=== PATIENT | male | born 1985 | race African-American/Black ===

== ENCOUNTER 2016-11-03 18:31 | Emergency (ER) | payer SELFPAY ==
[~2016-11-03] VITALS: Ht 170.2 cm; Wt 100.0 kg
[2016-11-03 18:33] VITALS: BP 128/83; PULSE 70; RESP 20; TEMP 98.1; O2SAT 98
[2016-11-03] MEDS ORDERED: AMOX500C PO (18:42)
--- NOTE | 2016-11-03 18:52 | PD ---
HPI Chief Complaint: Headache Time Seen by Provider: 18:42 Travel History International Travel<30 days: No Contact w/Intl Traveler<30days: No Traveled to known affect area: No History of Present Illness HPI 30-year-old male came to the emergency room with history of headache that's been on and off for past 2 weeks. He points to his left side of the temporal area and says it radiates up to the midline/vertex. When it comes it's like a severe spasm that causes disequilibrium as well. Currently the discomfort is 3 out of 10. Vital signs are stable. Patient says he gets headache but it has never been like this and he usually takes care of it himself at home. He otherwise claims to be healthy. Patient is a smoker and smokes one pack per day for past 15 years. No history of photophobia or neck stiffness. No history of fever, vomiting or nausea. No known family history of cerebral aneurysms. PFSH Past Medical History Narrative Medical List of his past medical, surgical, social and family history is reviewed from the nursing note. Past Surgical History Oral Surgery: Yes (DENTAL) Social History Alcohol Use: Yes (SOC) Tobacco Use: Yes (2PPD) Substance Use: Yes (marijuana) Allergies-Medications (Allergen,Severity, Reaction): Coded Allergies: Codeine (Verified Allergy, Unknown, 11/03/16) Comments List of his allergies reviewed from the nursing note. Reported Meds & Prescriptions Reported Meds & Active Scripts Active Qegdsaoyhf-Eixptmfxkykqm-Dlunwluu 50-300-40 Mg Cap 1 Cap PO Q4H PRN Do not exceed 6 capsules/day. Reported Amoxicillin 500 Mg Cap 500 Mg PO BID Narrative Medication List of his home medications reviewed from the nursing note. Review of Systems Except as stated in HPI: all other systems reviewed are Neg Physical Exam Narrative GENERAL: Awake, alert, anxious SKIN: Focused skin assessment warm/dry. HEAD: Atraumatic. Normocephalic. EYES: Pupils equal and round. No scleral icterus. No injection or drainage. ENT: No nasal bleeding or discharge. Mucous membranes pink and moist. NECK: Trachea midline. No JVD. Neck is supple, no signs of meningismus CARDIOVASCULAR: Regular rate and rhythm. No murmur appreciated. RESPIRATORY: No accessory muscle use. Clear to auscultation. Breath sounds equal bilaterally. GASTROINTESTINAL: Abdomen soft, non-tender, nondistended. Hepatic and splenic margins not palpable. MUSCULOSKELETAL: No obvious deformities. No clubbing. No cyanosis. No edema. NEUROLOGICAL: Awake and alert. No obvious cranial nerve deficits. Motor grossly within normal limits. Normal speech. PSYCHIATRIC: Appropriate mood and affect; insight and judgment normal. Data Data Last Documented VS Vital Signs Date Time Temp Pulse Resp B/P Pulse Ox O2 Delivery O2 Flow Rate FiO2 11/03/16 18:33 98.1 70 20 128/83 98 Room Air Orders Complete Blood Count With Diff (11/03/16 18:58) Basic Metabolic Panel (Bmp) (11/03/16 18:58) Ct Brain W/O Iv Contrast(Rout) (11/03/16 18:58) Ecg Monitoring (11/03/16 18:58) Iv Access Insert/Monitor (11/03/16 18:58) Oximetry (11/03/16 18:58) Sodium Chloride 0.9% Flush (Ns Flush) (11/03/16 19:00) Prochlorperazine Inj (Compazine Inj) (11/03/16 19:00) Sodium Chlor 0.9% 1000 Ml Inj (Ns 1000 M (11/03/16 18:58) Diphenhydramine Inj (Benadryl Inj) (11/03/16 20:30) Labs Laboratory Tests Test 11/03/16 19:10 White Blood Count 6.8 TH/MM3 Red Blood Count 4.67 MIL/MM3 Hemoglobin 14.0 GM/DL Hematocrit 41.1 % Mean Corpuscular Volume 88.0 FL Mean Corpuscular Hemoglobin 29.9 PG Mean Corpuscular Hemoglobin 34.0 % Concent Red Cell Distribution Width 13.2 % Platelet Count 364 TH/MM3 Mean Platelet Volume 6.7 FL Neutrophils (%) (Auto) 56.8 % Lymphocytes (%) (Auto) 31.7 % Monocytes (%) (Auto) 7.3 % Eosinophils (%) (Auto) 3.6 % Basophils (%) (Auto) 0.6 % Neutrophils # (Auto) 3.9 TH/MM3 Lymphocytes # (Auto) 2.2 TH/MM3 Monocytes # (Auto) 0.5 TH/MM3 Eosinophils # (Auto) 0.2 TH/MM3 Basophils # (Auto) 0.0 TH/MM3 CBC Comment DIFF FINAL Differential Comment Sodium Level 136 MEQ/L Potassium Level 4.0 MEQ/L Chloride Level 104 MEQ/L Carbon Dioxide Level 25.4 MEQ/L Anion Gap 7 MEQ/L Blood Urea Nitrogen 18 MG/DL Creatinine 0.94 MG/DL Estimat Glomerular Filtration 115 ML/MIN Rate Random Glucose 79 MG/DL Calcium Level 8.8 MG/DL MDM Medical Decision Making Medical Screen Exam Complete: Yes Emergency Medical Condition: Yes Medical Record Reviewed: Yes Differential Diagnosis Subarachnoid hemorrhage, migraine, headache NOS Narrative Course 7:[address] scan without contrast is read to be normal by the radiologist. Patient is getting IV fluid bolus and Compazine for the headache. Awaiting for the blood test result. 8:11 PM blood test results of back and within normal limit. I'll discharge him. Procedures EKG Prior to Arrival: No Diagnosis Primary Impression: Headache Qualified Code: R51 - Acute intractable headache, unspecified headache type Referrals: Primary Care Physician Additional Instructions: Please return to the ER if the condition worsens or any other new concerns. Otherwise follow-up with a primary care. Drink lots of fluid. Take the medication as per the prescription direction. Stay away from alcohol and cigarettes. Do not watch television, cell phone or computer over 24 to 48 hours. Med/Other Pt SpecificInfo: Prescription(s) given Scripts Gxuuipitrg-Qgpgpfyofzirl-Igkbqons 50-300-40 Mg Cap1 Cap PO Q4H PRN (HEADACHE) # 20 CAP Ref 0 Do not exceed 6 capsules/day. Prov:Munira Zelaya MD 11/03/16 Disposition: 01 DISCHARGE HOME Condition: Stable Munira Zelaya MD Nov 03, 2016 18:51
[2016-11-03] MEDS ORDERED: SODIUM CHLOR 0.9% 1000 ML INJ 1,000 ML IV ONE (18:58)
[2016-11-03] MEDS ORDERED: PROCHLORPERAZINE INJ 10 MG/2 ML VIAL IVP ONE (19:00)
[2016-11-03] MEDS ORDERED: SODIUM CHLORIDE 0.9% FLUSH 10 ML FLUSH IVF PRN (19:00)
--- NOTE | 2016-11-03 19:30 | RADRPT ---
EXAM DATE/TIME: 11/03/2016 19:18 [facility] COMPARISON: No previous studies available for comparison. INDICATIONS : Headache X two months. RADIATION DOSE: 37.33 CTDIvol (mGy) MEDICAL HISTORY : None SURGICAL HISTORY : right knee surgery ENCOUNTER: Initial ACUITY: 2 months PAIN SCALE: 7/10 LOCATION: cranial TECHNIQUE: Multiple contiguous axial images were obtained of the head. Using automated exposure control and adj ustment of the mA and/or kV according to patient size, radiation dose was kept as low as reasonably a chievable to obtain optimal diagnostic quality images. DICOM format image data is available electro nically for review and comparison. FINDINGS: CEREBRUM: The ventricles are normal for age. No evidence of midline shift, mass lesion, hemorrhage or acute in farction. No extra-axial fluid collections are seen. POSTERIOR FOSSA: The cerebellum and brainstem are intact. The 4th ventricle is midline. The cerebellopontine angle i s unremarkable. EXTRACRANIAL: The visualized portion of the orbits is intact. SKULL: The calvaria is intact. No evidence of skull fracture. CONCLUSION: Normal examination. Chris Jefferson MD on November 03, 2016 at 19:27 Board Certified Radiologist. This report was verified electronically.
[2016-11-03 19:42] LABS: AUTOMATED NEUTROPHIL # 3.9 TH/MM3 (1.8-7.7); BASOPHIL % 0.6 % (0.0-2.0); EOSINOPHIL # 0.2 TH/MM3 (0-0.4); EOSINOPHIL % 3.6 % (0.0-4.0); HEMATOCRIT 41.1 % (39.0-51.0); HEMO FLAGS DIFF FINAL; LYMPH % 31.7 % (9.0-44.0); LYMPHOCYTE # 2.2 TH/MM3 (1.0-4.8); MEAN CORPUSCULAR HEMOGLOBIN 29.9 PG (27.0-34.0); MONO % 7.3 % (0.0-8.0); NEUT % 56.8 % (16.0-70.0); PLATELET COUNT 364 TH/MM3 (150-450); RED BLOOD COUNT 4.67 MIL/MM3 (4.50-5.90); RED CELL DISTRIBUTION WIDTH 13.2 % (11.6-17.2); WHITE BLOOD COUNT 6.8 TH/MM3 (4.0-11.0)
[2016-11-03 20:00] LABS: BICARBONATE 25.4 MEQ/L (21.0-32.0)
[2016-11-03] MEDS ORDERED: BUTA1CAP5 PO (20:13)
[2016-11-03] MEDS ORDERED: diphenhydrAMINE HCL 50 MG/ML VIAL IV PUSH ONE (20:30)
== END 2016-11-03 20:55 | disposition home or self-care (01) ==
LOC: NEPD 18:31
DX: R51 Headache (principal); F17.200 Nicotine dependence, unspecified, uncomplicated
CPT/HCPCS: 70450; 80048; 85025; 96374; 99285; J0780; J7030